=== PATIENT | female | born 1960 | race Caucasian/White ===

== ENCOUNTER 2023-07-30 16:02 | Inpatient (IN) | payer OTHER ==
--- NOTE | 2023-07-30 16:22 | ED ---
Chest Pain HPI - General Chief Complaint: Chest Pain Stated Complaint: Cardiac Time Seen by Provider: 07/30/23 16:15 Source: patient, EMS, RN notes reviewed, old records reviewed Mode of arrival: EMS Limitations: no limitations - History of Present Illness Initial Comments: This is a 63-year-old female to the ER for evaluation. Patient was today for ev aluation of persistent chest pain with exertional shortness of breath as a transfer from outside facility for elevated troponin non-ST elevated KS. Patient is excepted in transfer and currently has no chest pain. Patient states he does have a strong family history of heart disease but she herself has no history of heart disease, currently no shortness of breath MD Complaint: chest pain -: days(s) Onset: during rest, during exertion Pain Location: substernal, left chest Pain Radiation: none Severity: moderate Severity scale (1-10): 4 Quality: aching, heaviness Consistency: constant Improves With: nothing Worsens With: nothing Anginal Symptoms: diaphoresis, dyspnea, sense of impending doom Other Symptoms: palpitations Treatments Prior to Arrival: none - Related Data Home Medications Medication Instructions Recorded Confirmed Vicks Zzzquil Capsules 1 cap PO HS PRN 07/30/23 07/30/23 Previous Rx's Medication Instructions Recorded Aspirin 81 mg PO DAILY 30 Days #30 tab 08/01/23 Atorvastatin [Lipitor] 40 mg PO HS 30 Days #30 tab 08/01/23 Metoprolol Tartrate [Lopressor] 25 mg PO BID 30 Days #30 tab 08/01/23 Nicotine 21Mg/24Hr Patch [Habitrol] 1 patch TRANSDERM DAILY 30 Days 08/01/23 #30 patch Allergies Allergy/AdvReac Type Severity Reaction Status Date / Time No Known Allergies Allergy Verified 07/30/23 18:41 Review of Systems ROS Statement: Those systems with pertinent positive or pertinent negative responses have been documented in the HPI. ROS Other: All systems not noted in ROS Statement are negative. EKG Findings - EKG Comments: EKG Findings:: EKG is sinus 79 [place] 160 QRS 94 QTc 560 - EKG Results: EKG: interpreted by JESÚS Past Medical History Past Medical History: Chest Pain / Angina History of Any Multi-Drug Resistant Organisms: None Reported Additional Past Surgical History / Comment(s): Carpal tunnel surgery Past Psychological History: No Psychological Hx Reported Smoking Status: Current every day smoker Past Alcohol Use History: Occasional Past Drug Use History: None Reported General Exam Limitations: no limitations General appearance: alert, in no apparent distress, anxious Head exam: Present: atraumatic, normocephalic, normal inspection Eye exam: Present: normal appearance, PERRL, EOMI. Absent: scleral icterus, conjunctival injection, periorbital swelling ENT exam: Present: normal exam, mucous membranes moist Neck exam: Present: normal inspection. Absent: tenderness, meningismus, lymphadenopathy Respiratory exam: Present: normal lung sounds bilaterally. Absent: respiratory distress, wheezes, rales, rhonchi, stridor Cardiovascular Exam: Present: regular rate, normal rhythm, normal heart sounds. Absent: systolic murmur, diastolic murmur, rubs, gallop, clicks GI/Abdominal exam: Present: soft, normal bowel sounds. Absent: distended, tenderness, guarding, rebound, rigid Extremities exam: Present: normal inspection, full ROM, normal capillary refill. Absent: tenderness, pedal edema, joint swelling, calf tenderness Back exam: Present: normal inspection Neurological exam: Present: alert, oriented X3, CN II-XII intact Psychiatric exam: Present: normal affect, normal mood Skin exam: Present: warm, dry, intact, normal color. Absent: rash Course Vital Signs 07/30/23 07/30/23 07/30/23 16:09 16:15 20:00 Temperature 97.8 F 97.8 F Pulse Rate 81 87 94 Pulse Rate [ 78 Right Radial] Respiratory 18 16 19 Rate Blood Pressure 96/62 85/70 Blood Pressure [Left Arm] O2 Sat by Pulse 94 L 94 L 97 Oximetry 07/31/23 07/31/23 07/31/23 00:00 02:00 04:00 Temperature 98.0 F Pulse Rate 72 Pulse Rate [ 79 79 Right Radial] Respiratory 19 Rate Blood Pressure 98/65 Blood Pressure 95/57 [Left Arm] O2 Sat by Pulse 93 L Oximetry 07/31/23 07/31/23 07/31/23 05:56 07:56 08:00 Temperature 98 F Pulse Rate Pulse Rate [ 73 Right Radial] Respiratory 18 Rate Blood Pressure Blood Pressure 104/74 [Left Arm] O2 Sat by Pulse 97 95 97 Oximetry 07/31/23 12:00 Temperature 97.5 F L Pulse Rate Pulse Rate [ 66 Right Radial] Respiratory 18 Rate Blood Pressure Blood Pressure 104/74 [Left Arm] O2 Sat by Pulse 95 Oximetry - Reevaluation(s) Reevaluation #1: 07/30/23 18:48 Medical records reviewed Reevaluation #2: 07/30/23 18:48 Patient symptoms are improving and remained improved without chest pain Reevaluation #3: 07/30/23 18:48 Patient informed of results questions answered Reevaluation #4: Was pt. sent in by a medical professional or institution (VENKATESH Sarmiento, FRUIT [employer]ER, urgent care, hospital, or half-way...) When possible be specific @ -no Did you speak to anyone other than the patient for history (EMS, parent, family, police, friend...)? What history was obtained from this source @ -no Did you review nursing and triage notes (agree or disagree)? Why? @ -agree Are old charts reviewed (outside hosp., previous admission, EMS record, old EKG, old radiological studies, urgent care reports/EKG's, half-way records)? R eport findings @ -yes Differential Diagnosis (chest pain, altered mental status, abdominal pain women, abdominal pain men, vaginal bleeding, weakness, fever, dyspnea, syncope, headache, dizziness, GI bleed, back pain, seizure, CVA, palpatations, mental health, musculoskeletal)? @ -prior EKG interpreted by me (3pts min.). @ -yes X-rays interpreted by me (1pt min.). @ -no CT interpreted by me (1pt min.). @ -no U/S interpreted by me (1pt. min.). @ -no What testing was considered but not performed or refused? (CT, X-rays, U/S, labs)? Why? @ -none What meds were considered but not given or refused? Why? @ -none Did you discuss the management of the patient with other professionals (professionals i.e. VENKATESH Sarmiento, FRUIT GRADER, lab, RT, psych nurse, social media senior associate, transfusion nurse, teacher, mechanical engineering officer, case reviewer)? Give summary @ -no Was smoking cessation discussed for >3mins.? @ -no Was critical care preformed (if so, how long)? @ -yes31 Were there social determinants of health that impacted care today? How? (Homelessness, low income, unemployed, alcoholism, drug addiction, transportation, low edu. Level, literacy, decrease access to med. care, [facility], rehab)? @ -none Was there de-escalation of care discussed even if they declined (Discuss DNR or withdrawal of care, Hospice)? DNR status @ -no What co-morbidities impacted this encounter? (DM, HTN, Smoking, COPD, CAD, Cancer, CVA, ARF, Chemo, Hep., AIDS, mental health diagnosis, sleep apnea, morbid obesity)? @ -none Was patient admitted / discharged? Hospital course, mention meds given and route, prescriptions, significant lab abnormalities, going to OR and other pertinent info. @ - 63 female to the ER for evaluation of chest pain. Patient will be admitted for chest pain observation and cardiology evaluation with elevated troponin Admitted Undiagnosed new problem with uncertain prognosis? @ -no Drug Therapy requiring intensive monitoring for toxicity (Heparin, Nitro, Insulin, Cardizem)? @ -no Were any procedures done? @ -no Diagnosis/symptom? @ -Chest pain, non-STEMI Acute, or Chronic, or Acute on Chronic? @ -Acute Uncomplicated (without systemic symptoms) or Complicated (systemic symptoms)? @ -Complicated Side effects of treatment? @ -no Exacerbation, Progression, or Severe Exacerbation? @ -exacerbation Poses a threat to life or bodily function? How? (Chest pain, USA, KS, pneumonia, PE, COPD, DKA, ARF, appy, cholecystitis, CVA, Diverticulitis, Homicidal, Suicidal, threat to staff... and all critical care pts) @ -yes with positive chest pain Reevaluation #5: Differential Chest Pain: Stable Angina, Unstable Angina, STEMI, NSTEMI Aortic Dissection, Pneumothorax, Musculoskeletal, Esophageal Spasm GERD, Cholecystitis, Pancreatitis, Zoster, this is not meant to be an all-inclusive list. - Consultations Consultation #1: Spoke with cardiology on-call who will see patient in the morning Consultation #2: Spoke with sound who agrees to admit this patient Chest Pain MDM - MDM 63 female to the ER for evaluation of chest pain. Patient will be admitted for chest pain observation and cardiology evaluation with elevated troponin Critical Care Time Critical Care Time: Yes Total Critical Care Time: 31 Disposition Clinical Impression: Atypical chest pain, Chest pain, NSTEMI (non-ST elevated myocardial infarction) Disposition: ADMITTED IP TO THIS HOSP Condition: Stable Is patient prescribed a controlled substance at d/c from ED?: No Time of Disposition: 18:20
[2023-07-30 16:35] LABS: Basophils % (A) 0 %; Eosinophils # (A) 0.1 k/uL (0-0.7); Eosinophils % (A) 1 %; HCT 43.8 % (34.0-46.0); HGB 14.5 gm/dL (11.4-16.0); Lymphocytes # (A) 1.6 k/uL (1.0-4.8); Lymphocytes % (A) 20 %; Mean Platelet Volume 8.3; Monocytes # (A) 0.4 k/uL (0-1.0); Monocytes % (A) 5 %; Neutrophils # (A) 5.5 k/uL (1.3-7.7); Neutrophils % (A) 72 %; Platelet Count 214 k/uL (150-450); RBC 4.52 m/uL (3.80-5.40); RDW 12.8 % (11.5-15.5); WBC 7.7 k/uL (3.8-10.6)
[2023-07-30] MEDS: HEPARIN SOD,PORK IN 0.45% NACL 25,000 UNIT in 0.45% NACL 1 250ML.BAG IV SCH (17:04)
[2023-07-30 17:06] LABS: INR 0.9 (<1.2); Partial Thromboplastin Time 55.1 sec (22.0-30.0); Prothrombin Time 10.2 sec (10.0-12.5)
[2023-07-30] MEDS: SODIUM CHLORIDE 0.9% 1,000 ML IV STA (17:07)
[2023-07-30] MEDS: MORPHINE SULFATE 4 MG/ML SYRINGE IV STA (17:10)
[2023-07-30 17:24] LABS: ALT 35 U/L (4-34); AST 75 U/L (14-36); African American GFR (CKD) >90 (>60 ml/min/1.73 sqM); Albumin 3.5 g/dL (3.5-5.0); Alkaline Phosphatase 59 U/L (38-126); Anion Gap 13 mmol/L; Blood Urea Nitrogen 19 mg/dL (7-17); Calcium 8.6 mg/dL (8.4-10.2); Carbon Dioxide 16 mmol/L (22-30); Chloride 107 mmol/L (98-107); Glucose 79 mg/dL (74-99); Lipase 173 U/L (23-300); Magnesium 1.8 mg/dL (1.6-2.3); Non-African American GFR(CKD) >90 (>60 ml/min/1.73 sqM); Potassium 4.7 mmol/L (3.5-5.1); Sodium 136 mmol/L (137-145); Total Bilirubin 0.9 mg/dL (0.2-1.3); Total Protein 6.2 g/dL (6.3-8.2)
[2023-07-30 17:30] LABS: NT-Pro-B-Type Natriuretic Pept 8290 pg/mL
[2023-07-30] MEDS ORDERED: NITROGLYCERIN SL TABS 0.4 MG TAB SUBLINGUAL PRN (18:07)
[2023-07-30] MEDS ORDERED: MORPHINE SULFATE 4 MG/ML SYRINGE IV PRN (18:18)
[2023-07-30] MEDS: ASPIRIN 81 MG PO STA (18:24)
[2023-07-30] MEDS: METOPROLOL TARTRATE 25 MG TAB PO SCH (22:25)
[2023-07-31] MEDS: HEPARIN SODIUM 1,000 UN/ML (10ML VL) IV PRN (01:12)
--- NOTE | 2023-07-31 01:19 | P.HPIM ---
History of Present Illness H&P Date: 07/30/23 Chief Complaint: Exertional dyspnea 63-year-old female with dietary controlled diabetes mellitus Patient coming in for evaluation of exertional dyspnea. She reports that she is in very good health however she had flulike symptoms couple weeks ago that were resolved. But yesterday out of nowhere she started experiencing some chest pain while she was in her car she describes the pain as central in the middle of her chest 7 out of 10 in severity felt like heavy pressure-like pain associated with some dizziness but no shortness of breath no profuse sweating no palpitations no nausea no vomiting she describes the pain lasted for about an hour and then subsided however she felt very drained and tired all day after and then today when she woke up she noticed exertional dyspnea with her usual activity she felt very drained she could not do anything. She denies any leg swelling denies any chest pains today denies any orthopnea or paroxysmal nocturnal dyspnea. She d enies any cardiac history denies any history of left heart cath or stress test. She admits to tobacco smoking denies any illicit drugs or heavy alcohol she denies any recent travel or hospital stay denies any history of blood clots She initially presented to [facility] where she was found to have elevated troponin and diffuse T wave inversion on her EKG blood work showed some hyperkalemia she was transferred to our facility for further care review of systems Pertinent positives as noted in HPI. All other systems were reviewed and are negative on exam Constitutional: No acute distress, conversant, pleasant Eyes: Anicteric sclerae, moist conjunctiva, Pupils equal round reactive to light ENMT: NC/AT Oropharynx clear, no erythema, or exudates Neck: Supple, no masses, or JVD No carotid bruits No thyromegaly Lungs: Clear to auscultation Clear to percussion Normal respiratory effort, no accessory muscle use Cardiovascular: Heart regular in rate and rhythm, No murmurs, gallops, or rubs No peripheral edema Abdominal: Soft Nontender, no guarding, rebound or rigidity Abdomen moving with respiration Normoactive bowel sounds No hepatomegaly, No splenomegaly Extremities: No digital cyanosis No clubbing Pedal pulses intact and symmetrical Radial pulses intact and symmetrical No calf tenderness Psychiatric: Alert and oriented to person, place and time Appropriate affect fair judgement Neuro Muscles Strength 5/5 in all 4 extremities Sensation to light touch grossly present throughout Cranial nerves II-XII grossly intact Past Medical History Past Medical History: Chest Pain / Angina History of Any Multi-Drug Resistant Organisms: None Reported Additional Past Surgical History / Comment(s): Carpal tunnel surgery Past Psychological History: No Psychological Hx Reported Smoking Status: Current every day smoker Past Alcohol Use History: Occasional Past Drug Use History: None Reported Medications and Allergies Home Medications Medication Instructions Recorded Confirmed Type Vicks Zzzquil Capsules 1 cap PO HS PRN 07/30/23 07/30/23 History Allergies Allergy/AdvReac Type Severity Reaction Status Date / Time No Known Allergies Allergy Verified 07/30/23 18:41 Physical Exam Vitals: Vital Signs Temp Pulse Resp BP Pulse Ox 07/31/23 00:00 72 98/65 93 L 07/30/23 20:00 97.8 F 94 19 85/70 97 07/30/23 16:15 87 16 96/62 94 L 07/30/23 16:09 97.8 F 81 18 94 L Intake and Output 07/30/23 07/30/23 07/31/23 14:59 22:59 06:59 Intake Total 50.81 Balance 50.81 Intake: Intake, IV Titration 50.81 Amount Heparin Sod,Pork in 0.45% 50.81 NaCl 25,000 unit In 0.45 % NaCl 1 250ml.bag @ 12 UNITS/KG/HR 6.26 mls/hr IV .Q24H [facility] Rx#: [id number] Other: Weight 52.163 kg Results CBC & Chem 7: 07/30/23 16:18 07/30/23 16:18 Labs: Abnormal Lab Results - Last 24 Hours (Table) 07/30/23 07/30/23 07/30/23 Range/Units 16:18 16:18 16:18 APTT 55.1 H (22.0-30.0) sec Sodium 136 L (137-145) mmol/L Carbon Dioxide 16 L (22-30) mmol/L BUN 19 H (7-17) mg/dL AST 75 H (14-36) U/L ALT 35 H (4-34) U/L Troponin I 1.680 H* (0.000-0.034) ng/mL Total Protein 6.2 L (6.3-8.2) g/dL 07/30/23 07/30/23 Range/Units 19:38 23:00 APTT (22.0-30.0) sec Sodium (137-145) mmol/L Carbon Dioxide (22-30) mmol/L BUN (7-17) mg/dL AST (14-36) U/L ALT (4-34) U/L Troponin I 1.570 H* 1.390 H* (0.000-0.034) ng/mL Total Protein (6.3-8.2) g/dL Assessment and Plan Assessment: 63-year-old female with dietary controlled diabetes mellitus presented with an episode of chest pain followed by exertional dyspnea over the past day or two, I discussed case with ED doctor and accepted the admission for NSTEMI to rule out acute coronary syndrome with anticipated length of stay more than 2 midnights NSTEMI rule out ACS Case discussed with cardiology on-call no plans for immediate intervention recommended heparinizing the patient Heparin GTT per ACS protocol Aspirin 81 mg daily No statin will be started due to elevated liver enzymes Cardiac monitoring Monitor vital signs Fall precautions Nitro as needed for chest pain Elevated troponin trending down 1.6 then 1.5 then 1.39 Blood work showing hemoglobin of 14.5 white count of 7.7 unremarkable Sodium 136 potassium 4.7 BUN 19 creatinine 0.59 Slightly elevated liver enzymes AST 75 ALT 35 EKG showed diffuse T wave inversion Diabetes mellitus dietary controlled Insulin sliding scale Code GI prophylaxis Protonix 40 mg p.o. daily DVT prophylaxis on heparin drip for ACS
[2023-07-31] MEDS ORDERED: DEXTROSE 50% SYRINGE 50 ML IVP PRN ×2 (01:41)
[2023-07-31] MEDS ORDERED: ALPRAZolam 0.5 MG TAB PO PRN (08:20)
[2023-07-31] MEDS ORDERED: ALPRAZolam 0.25 MG TAB PO PRN (08:20)
[2023-07-31] MEDS ORDERED: NITROGLYCERIN SL TABS 0.4 MG TAB SUBLINGUAL PRN (08:20)
[2023-07-31] MEDS ORDERED: ASPIRIN 325 MG TAB PO SCH (09:00)
--- NOTE | 2023-07-31 09:17 | XR ---
EXAMINATION TYPE: XR chest 1V portable DATE OF EXAM: 07/31/2023 8:29 AM CLINICAL INDICATION:Female, 63 years old with history of cp, sob; PHH COMPARISON: None TECHNIQUE: XR chest 1V portable Frontal view of the chest. FINDINGS: Lungs/Pleura: There is no evidence of pleural effusion, focal consolidation, or pneumothorax. Pulmonary vascularity: Unremarkable. Heart/mediastinum: Cardiomediastinal silhouette is unremarkable. Musculoskeletal: No acute osseous pathology. Other findings: None IMPRESSION: No acute cardiopulmonary disease/process.
--- NOTE | 2023-07-31 09:52 | P.CRDCN ---
History of Present Illness History of present illness: HISTORY OF PRESENT ILLNESS: This is a 63-year-old female with a past medical history significant for nicotine dependence. Patient does not follow with a lead teacher. We have been asked to see the patient in consultation for NSTEMI. Patient examined at the bedside. Patient states a couple days ago she began to feel short of breath and had some lightheadedness. She states that she had some chest pain at that time that lasted for approximately an hour. She states that it felt like somebody was pressing on the middle of her chest. She does report feeling cold at that time. She denied having any fever. She states the following morning she went to take a shower and was having a hard time getting through her shower due to shortness of breath. She states at that time she decided to come to the hospital for further evaluation. The patient denies any chest pain this morning but she continues to have shortness of breath with exertion. She denies any history of hypertension hyperlipidemia, or diabetes. She is a current cigarette smoker and reports occasional alcohol use. She does report having a chronic cough from smoking. She states that her dad side of the family has a history of cardiac problems but is unsure of exactly what. DIAGNOSTICS: - EKG reveals sinus mechanism with diffuse T wave inversions and prolonged QT. - Chest xray negative for acute findings. - Laboratory data: WBC 7.7. Hemoglobin 14.5. Platelet count 214. Sodium 136. potassium 4.7. BUN 19. Creatinine 0.59 magnesium 1.8. AST 75. ALT 35. Troponin 1.680. 1.570. 1.390. proBNP 8290. - Current home cardiac medications include none. REVIEW OF SYSTEMS: At the time of my exam: CONSTITUTIONAL: Denies fever or chills. HEENT: Denies blurred vision, vision changes, or eye pain. Denies hemoptysis CARDIOVASCULAR: Denies chest pain. Denies orthopnea. Denies PND. Denies palpitations RESPIRATORY: Denies shortness of breath. GASTROINTESTINAL: Denies abdominal pain. Denies nausea or vomiting. HEMATOLOGIC: Denies bleeding disorders. GENITOURINARY: Denies any blood in urine. SKIN: Denies pruitis. Denies rash. PHYSICAL EXAM: VITAL SIGNS: Reviewed. GENERAL: Well-developed in no acute distress. HEENT: Head is normocephalic. Pupils are equal, round. Sclerae anicteric. Mucous membranes of the mouth are moist. Neck supple. No JVD or thyromegaly LUNGS: Respirations even and unlabored. Lungs essentially clear to auscultation bilaterally. HEART: Regular rate and rhythm. S1 and S2 heard. ABDOMEN: Soft. Nondistended. Nontender. EXTREMITIES: Normal range of motion. No clubbing or cyanosis. Peripheral pulses intact. No lower extremity edema NEUROLOGIC: Awake and alert. Oriented x 3. ASSESSMENT: Non-STEMI with diffuse T wave inversions, CAD versus Takotsubo cardiomyopathy Exertional shortness of breath Minimally elevated LFTs Nicotine dependence PLAN: Obtain 2D echo to assess cardiac structure and function Continue IV heparin Add aspirin 81 mg daily and atorvastatin 40 mg at night Patient has been started on metoprolol tartrate 25 mg twice a day Smoking cessation recommended Patient to undergo cardiac catheterization today with Dr. Cleveland Further recommendations pending patient course Nurse practitioner note has been reviewed by physician. Signing provider agrees with the documented findings, assessment, and plan of care documented by SERVICE EMPLOYEE as a scribe. Past Medical History Past Medical History: Chest Pain / Angina History of Any Multi-Drug Resistant Organisms: None Reported Additional Past Surgical History / Comment(s): Carpal tunnel surgery Past Psychological History: No Psychological Hx Reported Smoking Status: Current every day smoker Past Alcohol Use History: Occasional Past Drug Use History: None Reported Medications and Allergies Home Medications Medication Instructions Recorded Confirmed Type Vicks Zzzquil Capsules 1 cap PO HS PRN 07/30/23 07/30/23 History Allergies Allergy/AdvReac Type Severity Reaction Status Date / Time No Known Allergies Allergy Verified 07/30/23 18:41 Physical Exam Vitals: Vital Signs Temp Pulse Pulse Resp BP BP Pulse Ox 07/31/23 07:56 95 07/31/23 05:56 97 07/31/23 04:00 98.0 F 79 19 95/57 07/31/23 02:00 79 07/31/23 00:00 72 98/65 93 L 07/30/23 20:00 97.8 F 94 78 19 85/70 97 07/30/23 16:15 87 16 96/62 94 L 07/30/23 16:09 97.8 F 81 18 94 L Intake and Output 07/30/23 07/31/23 07/31/23 22:59 06:59 14:59 Intake Total 50.81 Output Total 1 Balance 49.81 Intake: Intake, IV Titration 50.81 Amount Heparin Sod,Pork in 0.45% 50.81 NaCl 25,000 unit In 0.45 % NaCl 1 250ml.bag @ 12 UNITS/KG/HR 6.26 mls/hr IV .Q24H [facility] Rx#: [id number] Output: Urine 1 Other: Weight 52.163 kg 52.163 kg Results 07/30/23 16:18 07/30/23 16:18 Cardiac Enzymes 07/30/23 07/30/23 07/30/23 Range/Units 16:18 16:18 19:38 AST 75 H (14-36) U/L Troponin I 1.680 H* 1.570 H* (0.000-0.034) ng/mL 07/30/23 Range/Units 23:00 AST (14-36) U/L Troponin I 1.390 H* (0.000-0.034) ng/mL Coagulation 07/30/23 07/30/23 Range/Units 16:18 23:00 PT 10.2 (10.0-12.5) sec APTT 55.1 H 28.8 (22.0-30.0) sec CBC 07/30/23 Range/Units 16:18 WBC 7.7 (3.8-10.6) k/uL RBC 4.52 (3.80-5.40) m/uL Hgb 14.5 (11.4-16.0) gm/dL Hct 43.8 (34.0-46.0) % Plt Count 214 (150-450) k/uL Comprehensive Metabolic Panel 07/30/23 Range/Units 16:18 Sodium 136 L (137-145) mmol/L Potassium 4.7 (3.5-5.1) mmol/L Chloride 107 (98-107) mmol/L Carbon Dioxide 16 L (22-30) mmol/L BUN 19 H (7-17) mg/dL Creatinine 0.59 (0.52-1.04) mg/dL Glucose 79 (74-99) mg/dL Calcium 8.6 (8.4-10.2) mg/dL AST 75 H (14-36) U/L ALT 35 H (4-34) U/L Alkaline Phosphatase 59 (38-126) U/L Total Protein 6.2 L (6.3-8.2) g/dL Albumin 3.5 (3.5-5.0) g/dL Current Medications Generic Name Dose Route Start Last Admin Trade Name Joeq PRN Reason Stop Dose Admin Aspirin 325 mg 07/31/23 09:00 Aspirin 325 Mg Tab PO DAILY EV Dextrose/Water 25 ml 07/31/23 01:41 Dextrose 50% Syringe 50 Ml IVP PER PROTOCOL PRN Hypoglycemia Protocol Dextrose/Water 50 ml 07/31/23 01:41 Dextrose 50% Syringe 50 Ml IVP PER PROTOCOL PRN Hypoglycemia Protocol Heparin Sodium (Porcine) 0 unit 07/30/23 16:15 07/31/23 01:12 Heparin Sodium 1,000 Un/Ml (10ml Vl) IV 2,500 unit PER PROTOCOL PRN Administration Low PTT Protocol Sodium Chloride 1,000 mls @ 20 mls/hr 07/30/23 16:15 07/30/23 17:07 Saline 0.9% IV 07/31/23 16:14 20 mls/hr .Q24H [facility] Administration Heparin Sodium/Sodium Chloride 250 mls @ 6.26 mls/hr 07/30/23 16:15 07/31/23 01:11 25,000 unit/ Sodium Chloride IV 15 units/kg/hr .Q24H [facility] 7.824 mls/hr Titration Protocol 12 UNITS/KG/HR Insulin Aspart 0 unit 07/31/23 07:30 Insulin Aspart (Novolog) 100 Unit/Ml Vial SQ ACHS [facility] Protocol Metoprolol Tartrate 25 mg 07/30/23 21:00 07/30/23 22:25 Metoprolol Tartrate 25 Mg Tab PO Not Given BID [facility] Morphine Sulfate 4 mg 07/30/23 18:18 Morphine Sulfate 4 Mg/Ml Syringe IV Q6HR PRN Chest Pain Nitroglycerin 0.4 mg 07/30/23 18:07 Nitroglycerin Sl Tabs 0.4 Mg Tab SUBLINGUAL Q5M PRN Chest Pain Intake and Output 07/30/23 07/31/23 07/31/23 22:59 06:59 14:59 Intake Total 50.81 Output Total 1 Balance 49.81 Intake: Intake, IV Titration 50.81 Amount Heparin Sod,Pork in 0.45% 50.81 NaCl 25,000 unit In 0.45 % NaCl 1 250ml.bag @ 12 UNITS/KG/HR 6.26 mls/hr IV .Q24H [facility] Rx#: [id number] Output: Urine 1 Other: Weight 52.163 kg 52.163 kg 07/30/23 16:18 07/30/23 16:18
[2023-07-31] MEDS: ASPIRIN 325 MG TAB PO STA (10:04)
[2023-07-31] MEDS: ATORVASTATIN 80 MG TAB PO STA (10:05)
[2023-07-31] MEDS: SODIUM CHLORIDE 0.9% 1,000 ML in EMPTY BAG 1 BAG IV SCH (10:05)
[2023-07-31] MEDS: ASPIRIN 81 MG PO SCH (10:06)
[2023-07-31] MEDS: NICOTINE 21MG/24HR PATCH TRANSDERM SCH (10:08)
--- NOTE | 2023-07-31 12:55 | P.PN ---
Subjective Progress Note Date: 07/31/23 Hospital course: Patient is a very pleasant 63-year-old female with a past medical history of nicotine dependence and dietary controlled diabetes melitis. She presented to the emergency department with a chief complaint of exertional shortness of breath and chest pain. Upon arrival to the emergency department, patient underwent full evaluation. Vital signs upon arrival show blood pressure 96/42, heart rate 87, respiratory rate 18, temp 97.8 F, and SpO2 of 94% on room air. EKG completed showing sinus mechanism at 79 bpm with inferior lateral T wave inversion in leads I, II, III, aVF and V3 through V6. Labs were completed and reviewed. CBC unremarkable. Coagulation profile showing an elevated PTT of 51.1. BMP showing hypocarbia with bicarb of 16 and mildly elevated BUN of 19 otherwise normal findings. Magnesium 1.8. Liver profile showing elevated AST of 75 and ALT of 35. Troponin 1.680 and proBNP 8290. Patient was started on heparin infusion for treatment of NSTEMI and admitted under our services with consultation to cardiology. Physical exam: Vital signs reviewed and stable. General: Nontoxic, no distress and appears stated age. Derm: Skin warm and dry, normal coloration for ethnicity. Head: Atraumatic, normocephalic and symmetric. Eyes: EOMs intact, no lid lag, and anicteric sclera Mouth: no lip lesions, mucus membranes moist Cardiovascular: regular rate and rhythm with normal S1S2, systolic murmur, positive posterior tibial pulses bilaterally, and cap refill < 2 seconds. Lungs: Respirations even, regular, and unlabored on room air. Lungs CTA bilatera lly, no rhonchi, no rales, no wheezing, and no accessory muscle usage. Abdominal: soft, nontender to palpation, no guarding, no appreciable organomegaly Ext: ROM intact. No gross muscle atrophy, no edema, no contractures Neuro: Speech clear, face symmetrical and CN II-XII grossly intact with no noted focal neuro deficits Psych: Alert and oriented to person, place, time, and situation. Appropriate and pleasant affect. Assessment and Plan of Care: NSTEMI Chest pain and exertional dyspnea secondary to above -Cardiology following, patient scheduled to undergo cardiac cath later today with Dr. Cleveland -Continue heparin infusion, currently PTT subtherapeutic at 35.4, infusion rate increased to 17 units/kg/h -Continuous telemetry monitoring -N.p.o. pending completion of cardiac cath then may advance to cardiac diet -Continue aspirin 81 mg daily, atorvastatin 80 mg nightly, and metoprolol 25 mg twice daily -Lipid profile and hemoglobin A1c with a.m. labs. -Echocardiogram to be completed. Nicotine dependence -Recommend smoking cessation. Order placed for nicotine patch 21 mg daily. Data and imaging reviewed: Vital signs reviewed and stable. Blood pressure 104/74, heart rate 73, respiratory rate 18, temp 98.0 F, and SpO2 of 97% on room air. Troponins trended throughout the night resulting at 1.680, 1.570, and 1.390. PTT subtherapeutic at 35.4, heparin infusion rate increased to 17 units/kg/h. Chest x-ray completed and radiology report reviewed stating negative for acute cardiopulmonary process. CODE STATUS: Full code DVT prophylaxis: Heparin Anticipated discharge date: Clinical course to determine Anticipated discharge place: Clinical course to determine Patient was seen independently by Nurse Pracitioner. This document was prepared using [employer] dictation software. Please allow for errors in manager zone, while rare they do occur. Objective - Vital Signs Vital signs: Vital Signs Temp 98.0 F 07/31/23 04:00 Pulse 79 07/31/23 04:00 Resp 19 07/31/23 04:00 BP 95/57 07/31/23 04:00 Pulse Ox 95 07/31/23 07:56 FiO2 Intake & Output 07/30/23 07/31/23 07/31/23 18:59 06:59 18:59 Intake Total 50.81 Output Total 1 Balance 49.81 Weight 52.163 kg 52.163 kg Intake: Intake, IV Titration 50.81 Amount Heparin Sod,Pork in 0.45% 50.81 NaCl 25,000 unit In 0.45 % NaCl 1 250ml.bag @ 12 UNITS/KG/HR 6.26 mls/hr IV .Q24H [facility] Rx#: [id number] Output: Urine 1 - Labs CBC & Chem 7: 07/30/23 16:18 07/30/23 16:18 Labs: Abnormal Lab Results - Last 24 Hours (Table) 07/30/23 07/30/23 07/30/23 Range/Units 16:18 16:18 16:18 APTT 55.1 H (22.0-30.0) sec Sodium 136 L (137-145) mmol/L Carbon Dioxide 16 L (22-30) mmol/L BUN 19 H (7-17) mg/dL AST 75 H (14-36) U/L ALT 35 H (4-34) U/L Troponin I 1.680 H* (0.000-0.034) ng/mL Total Protein 6.2 L (6.3-8.2) g/dL 07/30/23 07/30/23 Range/Units 19:38 23:00 APTT (22.0-30.0) sec Sodium (137-145) mmol/L Carbon Dioxide (22-30) mmol/L BUN (7-17) mg/dL AST (14-36) U/L ALT (4-34) U/L Troponin I 1.570 H* 1.390 H* (0.000-0.034) ng/mL Total Protein (6.3-8.2) g/dL
[2023-07-31 13:08] LABS: Chol/HDL Ratio 1.89 Ratio; LDL Cholesterol,Calculated 96.8 mg/dL (0.0-131.0); VLDL Calculation 13.22 mg/dL (5.00-40.00)
[2023-07-31] MEDS: INSULIN ASPART (NovoLOG) 100 UNIT/ML VIAL SQ SCH (14:20)
[2023-07-31] MEDS ORDERED: HEPARIN SODIUM 1,000 UN/ML (10ML VL) ONE (15:15)
[2023-07-31] MEDS ORDERED: fentaNYL (PF) 50 MCG/ML 2 ML AMP ONE (15:15)
[2023-07-31] MEDS: LIDOCAINE 2% INJ 20 MG/ML SQ ONE (15:24)
[2023-07-31] MEDS: fentaNYL (PF) 50 MCG/1 ML VIAL IVP ONE (15:24)
[2023-07-31] MEDS: MIDAZOLAM 2 MG/2 ML VIAL IVP ONE ×2 (15:24→15:30)
[2023-07-31] MEDS: VERAPAMIL 2.5 MG/ML 4 ML VIAL IVP ONE (15:24)
[2023-07-31] MEDS: HEPARIN SODIUM 1,000 UN/ML (10ML VL) IVP ONE (15:34)
[2023-07-31] MEDS: IOPAMIDOL-370 100ML BTL INTRATHECA ONE (15:40)
[2023-07-31] MEDS: SODIUM CHLORIDE 0.9% 1,000 ML IV ONE ×2 (15:41)
--- NOTE | 2023-07-31 16:36 | P.CARDCATH ---
Description of Procedure: PROCEDURES PERFORMED: Left heart catheterization, bilateral coronary angiography, ultrasound guided arterial access, left ventriculogram INDICATION: Non-STEMI CONSENT:I have discussed the risks, benefits and alternative therapies for the above-mentioned procedure and for both sedation/analgesia as well as necessary blood product administration, if indicated, as they pertain to this patient. The patient has indicated understanding and acceptance of the risks and procedures discussed. PROCEDURE: After the risks, benefits and alternatives of the above mentioned procedure explained in detail with the patient, informed consent was obtained. Patient was taken to the catheterization lab and prepped and draped in usual fashion. Ultrasound guidance was used to assess for arterial access. 1% lidocaine was used to anesthetize the right radial artery. A 6-Indonesian sheath was placed in the right radial artery using modified Seldinger technique and ultrasound guidance. Left coronary angiography was performed with a 5-Indonesian JL 3.5 catheter and right coronary angiography was performed with a 5-Indonesian FR5 catheter in various views. A 5-Indonesian FR5 catheter was inserted into the left ventricle and pressure measurements were obtained. A left ventriculogram was performed in the [facility] projection with a pigtail catheter in power injection. The right radial sheath was removed and a TR band was placed with hemostasis achieved. The patient tolerated the procedure well. Patient was transported back to the post catheterization holding area in stable condition. Conscious Sedation: Patient was monitored under the direct supervision of myself for conscious sedation using Versed and fentanyl for a total duration of 15 minutes HEMODYNAMICS: Aorta: 98/72 LV: 94/5, LVEDP 10 SELECTIVE CORONARY ARTERIOGRAPHY: LEFT MAIN: The left main is a large caliber vessel which bifurcates into the LAD and circumflex. There is no significant stenosis. LEFT ANTERIOR DESCENDING CORONARY ARTERY: LAD is a large caliber vessel which stops short of the apex. There is no significant stenosis. The apex is supplied by the PDA. LEFT CIRCUMFLEX CORONARY ARTERY: Left circumflex is a moderate caliber vessel without significant stenosis. RIGHT CORONARY ARTERY: The right coronary artery is a large caliber vessel which gives off a PDA and PLV branch and is the dominant vessel. There is no significant stenosis. LEFT VENTRICULOGRAM: Left ventricular ejection fraction 45% with apical hypokinesis consistent with Takotsubo's Cardiomyopathy FINAL IMPRESSION: 1. Normal coronary arteries as described above. 2. Normal left sided filling pressures 3. Left ventricular ejection fraction 45% with apical hypokinesis consistent with Takotsubo's Cardiomyopathy PLAN: 1. Aggressive risk factor modification per most recent ACC/AHA guidelines. 2. Follow-up in the office in 1-2 weeks.
[2023-07-31] MEDS: ATORVASTATIN 40 MG TAB PO SCH (19:59)
[2023-07-31] MEDS ORDERED: ATORVASTATIN 80 MG TAB PO SCH (21:00)
[2023-08-01] MEDS ORDERED: HEPARIN SODIUM,PORCINE (1 ML) 2,500 UNIT in SODIUM CHLORIDE 0.9% 250 ML IRRIGATION PRN (07:00)
[2023-08-01] MEDS ORDERED: HEPARIN SODIUM,PORCINE 10,000 UNIT in SODIUM CHLORIDE 0.9% 1,000 ML IRRIGATION PRN (07:00)
--- NOTE | 2023-08-01 07:38 | CA ---
Transthoracic Echo Report Name: Nora Perez Age: 63 Gender: F : 1960 Exam Date: 07/31/2023 13:20 Exam Location: [facility] Ht (in): 65 Wt (lb): 115 Ordering Physician: Vi Russo Attending/Referring Phys: [id number], [employer] Tank Mechanic Shahrzad Hallman RDCS Procedure CPT: Indications: LV function,CP Cardiac Hx: Technical Quality: Good Contrast 1: Total Dose (mL): Contrast 2: Total Dose (mL): MEASUREMENTS (Male / Female) Normal Values 2D ECHO LV Diastolic Diameter PLAX 4.2 cm 4.2 - 5.9 / 3.9 - 5.3 cm LV Systolic Diameter PLAX 2.8 cm IVS Diastolic Thickness 1.3 cm 0.6 - 1.0 / 0.6 - 0.9 cm LVPW Diastolic Thickness 1.2 cm 0.6 - 1.0 / 0.6 - 0.9 cm LV Relative Wall Thickness 0.6 RV Internal Dim ED PLAX 2.9 cm LA Systolic Diameter LX 3.4 cm 3.0 - 4.0 / 2.7 - 3.8 cm LV Diastolic Volume MOD BP 77.7 cm??? 67 - 155 / 56 - 104 cm??? LV Systolic Volume MOD BP 41.0 cm??? 22 - 58 / 19 - 49 cm??? LV Ejection Fraction MOD BP 47.3 % >= 55 % LV Cardiac Index MOD BP 1477.8 cm???/min???m??? LV Diastolic Volume MOD 4C 76.3 cm??? LV Systolic Volume MOD 4C 49.5 cm??? LV Ejection Fraction MOD 4C 35.2 % LV Cardiac Index MOD 4C 1079.2 cm???/min???m??? LV Diastolic Length 4C 6.7 cm LV Systolic Length 4C 6.9 cm LV Diastolic Volume MOD 2C 74.5 cm??? LV Systolic Volume MOD 2C 37.6 cm??? LV Ejection Fraction MOD 2C 49.6 % LV Cardiac Index MOD 2C 1488.2 cm???/min???m??? LV Diastolic Length 2C 7.2 cm LV Systolic Length 2C 6.9 cm M-MODE Aortic Root Diameter MM 3.3 cm DOPPLER AV Peak Velocity 134.4 cm/s AV Peak Gradient 7.2 mmHg Mitral E Point Velocity 71.8 cm/s Mitral A Point Velocity 87.5 cm/s Mitral E to A Ratio 0.8 MV Deceleration Time 226.4 ms MV E' Velocity 5.3 cm/s Mitral E to MV E' Ratio 13.7 TR Peak Velocity 240.4 cm/s TR Peak Gradient 23.1 mmHg Right Ventricular Systolic Press 28.1 mmHg FINDINGS Left Ventricle Left ventricular ejection fraction is estimated at 35-40 %. Left ventricular cavity size normal. Moderately increased basal septal wall thickness. Mildly decreased left ventricular ejection fraction. Anterior ,septal , inferior [place] hypokinesis Right Ventricle Normal right ventricular size. Right ventricular systolic pressure within normal limits. Right Atrium Normal right atrial size. Left Atrium Normal left atrial size. Mitral Valve Structurally normal mitral valve. Mild mitral regurgitation. Aortic Valve Trileaflet aortic valve. No aortic valve stenosis or regurgitation. Tricuspid Valve Structurally normal tricuspid valve. Mild tricuspid regurgitation. Pulmonic Valve Structurally normal pulmonic valve. No pulmonic regurgitation. Pericardium No pericardial effusion. Aorta Normal size aortic root and proximal ascending aorta. CONCLUSIONS Left ventricular ejection fraction is estimated at 35-40 %. Moderate basal septal hypertrophy Apical and periapical akinesis Increased turbulance in LVOT no obstruction or LORI Mild Mitral regurgitation Normal RV size and function Previewed by: Dr Feroz Diaz (Electronically Signed) Final Date: 01 August 2023 07:37
[2023-08-01 08:13] LABS: HCT 40.6 % (34.0-46.0); HGB 13.1 gm/dL (11.4-16.0); MCH 31.4 pg (25.0-35.0); MCHC 32.2 g/dL (31.0-37.0); MCV 97.5 fL (80.0-100.0); Mean Platelet Volume 8.6; Platelet Count 200 k/uL (150-450); RBC 4.16 m/uL (3.80-5.40); RDW 12.9 % (11.5-15.5); WBC 7.5 k/uL (3.8-10.6)
[2023-08-01 08:29] LABS: African American GFR (CKD) >90 (>60 ml/min/1.73 sqM); Anion Gap 3 mmol/L; Blood Urea Nitrogen 14 mg/dL (7-17); Carbon Dioxide 25 mmol/L (22-30); Chloride 108 mmol/L (98-107); Glucose 106 mg/dL (74-99); Magnesium 1.6 mg/dL (1.6-2.3); Non-African American GFR(CKD) >90 (>60 ml/min/1.73 sqM); Potassium 4.4 mmol/L (3.5-5.1); Sodium 136 mmol/L (137-145)
[2023-08-01 09:08] VITALS: BP 112/80; PULSE 74; RESP 17; TEMP 98.2
[2023-08-01] MEDS ORDERED: MAGNESIUM OXIDE 400 MG TAB PO STA (10:59)
--- NOTE | 2023-08-01 11:04 | P.DS ---
Providers Date of admission: 07/30/23 18:19 Expected date of discharge: 08/01/23 Attending physician: Stephanie Sher DO Consults: 07/30/23 18:07 Consult Physician Urgent Consulting Provider: Angel Wynn Consult Reason/Comments: nstemi Do you want consulting provider notified?: Yes Primary care physician: Stated None Hospital Course: Discharge Diagnosis: NSTEMI Takotsubo's cardiomyopathy Chest pain and exertional dyspnea secondary to above Nicotine dependence. Recommend smoking cessation. Order placed for nicotine patch 21 mg daily. Pulmonary nodules. Transfer documentation from [facility], CTA was completed and per transfer documentation this revealed evidence of pulmonary nodules.Discussed findings with patient and her daughter at bedside that they will need to follow-up with certified health education specialist for repeat imaging and further management/testing of this finding. Hospital Course: Patient is a very pleasant 63-year-old female with a past medical history of nicotine dependence and dietary controlled diabetes melitis. She presented to the emergency department with a chief complaint of exertional shortness of breath and chest pain. Upon arrival to the emergency department, patient underwent full evaluation at [facility] and was found to have an elevated troponin and EKG abnormalities and was transferred to our facility for further evaluation.. CTA was completed at [facility] and per transfer documentation this was negative for PE but revealed evidence of pulmonary nodules. Upon arrival to our facility, patient underwent further evaluation. Vital signs upon arrival show blood pressure 96/42, heart rate 87, respiratory rate 18, temp 97.8 F, and SpO2 of 94% on room air. EKG completed showing sinus mechanism at 79 bpm with inferior lateral T wave inversion in leads I, II, III, aVF and V3 through V6. Labs were completed and reviewed. CBC unremarkable. Coagulation profile showing an elevated PTT of 51.1. BMP showing hypocarbia with bicarb of 16 and mildly elevated BUN of 19 otherwise normal findings. Magnesium 1.8. Liver profile showing elevated AST of 75 and ALT of 35. Troponin 1.680 and proBNP 8290. Patient was started on heparin infusion for treatment of NSTEMI and admitted under our services with consultation to cardiology.Troponins trended throughout the night resulting at 1.680, 1.570, and 1.390. PTT subtherapeutic at 35.4, heparin infusion rate increased to 17 units/kg/h. Chest x-ray completed and radiology report reviewed stating negative for acute cardiopulmonary process. Patient was evaluated by appraisal technician and taken for cardiac cath which reports normal coronary arteries with a reduced EF of 45% with apical hypokinesis consistent with Takotsubo's cardiomyopathy. Patient cleared from cardiac perspective recommending outpatient follow-up in their office in 1 to 2 weeks. Physical exam: Vital signs reviewed and stable. General: Nontoxic, no distress and appears stated age. Derm: Skin warm and dry, normal coloration for ethnicity. Head: Atraumatic, normocephalic and symmetric. Eyes: EOMs intact, no lid lag, and anicteric sclera Mouth: no lip lesions, mucus membranes moist Cardiovascular: regular rate and rhythm with normal S1S2, systolic murmur, positive posterior tibial pulses bilaterally, and cap refill < 2 seconds. Lungs: Respirations even, regular, and unlabored on room air. Lungs CTA bilaterally, no rhonchi, no rales, no wheezing, and no accessory muscle usage. Abdominal: soft, nontender to palpation, no guarding, no appreciable organomegaly Ext: ROM intact. No gross muscle atrophy, no edema, no contractures Neuro: Speech clear, face symmetrical and CN II-XII grossly intact with no noted focal neuro deficits Psych: Alert and oriented to person, place, time, and situation. Appropriate and pleasant affect. A total of 34 minutes of time were spent preparing this complex discharge summary. Pt was discharged on 08/01/2023 at 10:57 AM. Patient was seen independently by Nurse Practitioner. This document was prepared using [employer] dictation software. Please allow for errors in laser engraver while rare they do occur. Adam Sandoval NP rendered care for this patient independently, reviewed the findings and plan as documented in the note above. I did not physically speak with or examine the patient on this date. Patient Condition at Discharge: Stable Plan - Discharge Summary New Discharge Prescriptions: New Nicotine 21Mg/24Hr Patch [Habitrol] 1 patch TRANSDERM DAILY 30 Days #30 patch Aspirin 81 mg PO DAILY 30 Days #30 tab Atorvastatin [Lipitor] 40 mg PO HS 30 Days #30 tab Metoprolol Tartrate [Lopressor] 25 mg PO BID 30 Days #30 tab Continue Vicks Zzzquil Capsules 1 cap PO HS PRN PRN Reason: Insomnia Discharge Medication List Vicks Zzzquil Capsules 1 cap PO HS PRN 07/30/23 [History] Aspirin 81 mg PO DAILY 30 Days #30 tab 08/01/23 [Rx] Atorvastatin [Lipitor] 40 mg PO HS 30 Days #30 tab 08/01/23 [Rx] Metoprolol Tartrate [Lopressor] 25 mg PO BID 30 Days #30 tab 08/01/23 [Rx] Nicotine 21Mg/24Hr Patch [Habitrol] 1 patch TRANSDERM DAILY 30 Days #30 patch 08/01/23 [Rx] Follow up Appointment(s)/Referral(s): Yfn Cleveland DO [STAFF PHYSICIAN] - 1 Week (office will call you with appt time) Héctor Yañez MD [REFERRING] - 1-2 Days Luis Royal DO [Doctor of Osteopathic Medicine] - 1 Week (August 22 9:00) Patient Instructions/Handouts: *Surgery [facility] - After Heart Catheterization - Tea Blender Instructions, How to Stop Smoking (DC), After Radial Heart Catheterization (GEN) Activity/Diet/Wound Care/Special Instructions: Activity: As tolerated. Take breaks as needed. Diet: Heart healthy and carb consistent diet. Avoid salts, or foods with hidden salts such as canned or boxed foods and frozen dinners. Extra salt makes your heart work harder and traps the fluid in your body for longer. Special Instructions: Take all of your medications as directed and remember to keep all of your doctor's appointments and follow-up as needed. Thank you for allowing us to participate in your care, it was truly a pleasure having you for our patient!!! [facility] CTA report states evidence of pulmonary nodules. As discussed with you and your daughter at bedside, it is of upmost importance to follow-up outpatient with certified health education specialist for repeat imaging and further evaluation and of this finding.. Discharge/Stand Alone Forms: Who Do I Call?, PH Area PCPs Discharge Disposition: HOME SELF-CARE
--- NOTE | 2023-08-01 13:24 | P.PN ---
Subjective HISTORY OF PRESENT ILLNESS: This is a 63-year-old female with a past medical history significant for nicotine dependence. Patient does not follow with a service vehicle operator. We have been asked to see the patient in consultation for NSTEMI. Patient examined at the bedside. Patient states a couple days ago she began to feel short of breath and had some lightheadedness. She states that she had some chest pain at that time that lasted for approximately an hour. She states that it felt like somebody was pressing on the middle of her chest. She does report feeling cold at that time. She denied having any fever. She states the following morning she went to take a shower and was having a hard time getting through her shower due to shortness of breath. She states at that time she decided to come to the hospital for further evaluation. The patient denies any chest pain this morning but she continues to have shortness of breath with exertion. She denies any history of hypertension hyperlipidemia, or diabetes. She is a current cigarette smoker and reports occasional alcohol use. She does report having a chronic cough from smoking. She states that her dad side of the family has a history of cardiac problems but is unsure of exactly what. DIAGNOSTICS: - EKG reveals sinus mechanism with diffuse T wave inversions and prolonged QT. - Chest xray negative for acute findings. - Laboratory data: WBC 7.7. Hemoglobin 14.5. Platelet count 214. Sodium 136. potassium 4.7. BUN 19. Creatinine 0.59 magnesium 1.8. AST 75. ALT 35. Trop onin 1.680. 1.570. 1.390. proBNP 8290. - Current home cardiac medications include none. 08/01/2023 Patient is status postcardiac catheterization with Dr. Velazquez yesterday revealing normal coronary arteries and normal left-sided filling pressures. Patient examined this morning at the bedside. Patient denies chest pain or pressure. She denies shortness of breath. Vital signs are stable. PHYSICAL EXAM: VITAL SIGNS: Reviewed. GENERAL: Well-developed in no acute distress. HEENT: Head is normocephalic. Pupils are equal, round. Sclerae anicteric. Mucous membranes of the mouth are moist. Neck supple. No JVD or thyromegaly LUNGS: Respirations even and unlabored. Lungs essentially clear to auscultation bilaterally. HEART: Regular rate and rhythm. S1 and S2 heard. ABDOMEN: Soft. Nondistended. Nontender. EXTREMITIES: Normal range of motion. No clubbing or cyanosis. Peripheral pulses intact. No lower extremity edema NEUROLOGIC: Awake and alert. Oriented x 3. ASSESSMENT: Non-STEMI with diffuse T wave inversions, status post cardiac catheterization revealing normal coronary arteries, consistent with Takotsubo cardiomyopathy Takotsubo cardiomyopathy Exertional shortness of breath Minimally elevated LFTs Nicotine dependence PLAN: Continue current cardiac medications including aspirin, lipitor, and metoprolol. No HONG/ARB at this time per Dr. Cleveland. Smoking cessation recommended Patient to follow-up postdischarge with Dr. Cleveland Nurse practitioner note has been reviewed by physician. Signing provider agrees with the documented findings, assessment, and plan of care documented by FISH WORM GROWER as a scribe. Objective - Vital Signs Vital signs: Vital Signs Temp 98.2 F 08/01/23 08:10 Pulse 74 08/01/23 08:10 Resp 17 08/01/23 08:10 BP 112/80 08/01/23 08:10 Pulse Ox 95 08/01/23 08:10 FiO2 Intake & Output 07/31/23 08/01/23 08/01/23 18:59 06:59 18:59 Intake Total 959.935 480 Balance 959.935 480 Intake: IV 400 Intake, IV Titration 79.935 Amount Heparin Sod,Pork in 0.45% 79.935 NaCl 25,000 unit In 0.45 % NaCl 1 250ml.bag @ 12 UNITS/KG/HR 6.26 mls/hr IV .Q24H [facility] Rx#: [id number] Oral 480 480 Other: Voiding Method Toilet Toilet Toilet # Voids 0 2 2 - Labs CBC & Chem 7: 08/01/23 07:50 08/01/23 07:50 Labs: Abnormal Lab Results - Last 24 Hours (Table) 07/31/23 08/01/23 Range/Units 17:15 07:50 APTT 41.3 H (22.0-30.0) sec Sodium 136 L (137-145) mmol/L Chloride 108 H (98-107) mmol/L Glucose 106 H (74-99) mg/dL
== END 2023-08-01 11:47 | disposition home or self-care (01) | DRG 281 ==
LOC: EC 16:02 → 3SCARD 18:19
PROVIDERS: ADMIT Internal Medicine; ATTEND Internal Medicine
PROC: 4A023N7 Measurement of Cardiac Sampling and Pressure, Left Heart, Percutaneous Approach (ICD-10-PCS; principal; 2023-07-31 13:10)
PROC: B2111ZZ Fluoroscopy of Multiple Coronary Arteries using Low Osmolar Contrast (ICD-10-PCS; principal; 2023-07-31 13:10)
PROC: B2151ZZ Fluoroscopy of Left Heart using Low Osmolar Contrast (ICD-10-PCS; principal; 2023-07-31 13:10)
DX: I21.4 Non-ST elevation (NSTEMI) myocardial infarction (principal); I51.81 Takotsubo syndrome; E11.9 Type 2 diabetes mellitus without complications; J41.0 Simple chronic bronchitis; Z28.310 Unvaccinated for COVID-19; R79.1 Abnormal coagulation profile; R74.01 Elevation of levels of liver transaminase levels; R91.8 Other nonspecific abnormal finding of lung field; F17.210 Nicotine dependence, cigarettes, uncomplicated; Z71.6 Tobacco abuse counseling; Z82.49 Family history of ischemic heart disease and other diseases of the circulatory system
CPT/HCPCS: 36415; 71045; 76937; 80048; 80053; 80061; 83036; 83690; 83735; 83880; 84484; 85025; 85027; 85610; 85730; 93005; 93306; 93458; 96374; 99291

== ENCOUNTER → 2023-12-30 | Outpatient (CLI) | payer OTHER ==
--- NOTE | 2024-01-20 09:01 | CT ---
Patient Nora Perez ID [id number] 1960 Age 63 years Gender F Order # EXAMINATION TYPE: CT chest w con DATE OF EXAM: 12/30/2023 COMPARISON: 07/30/2023 [facility] HISTORY: Abnormal findings CT DLP: 371 mGycm, Automated exposure control for dose reduction was used. CONTRAST: Performed injected with 100 mL of Isovue 300. TECHNIQUE: Axial images were obtained at 5 mm thick sections. Reconstructed images are reviewed on t he computer in the coronal plane. FINDINGS: Portion of the thyroid visualized is normal. There is a 1.9 cm nodule at the right mid lung periphery. Series 3 image 38. This appears stable from comparison. There is a 1.6 cm area of increased density along the inferior right lung base. Series 3 image 48. Th is was present previously and appears stable. Bilateral breast prostheses are present. There is a 1.1 cm lymph node in the pretracheal space with slightly lower density central portion. T his may have been present previously but slightly larger on the current exam. Metastasis is not exclu ded. The ascending aorta diameter at the level of the main pulmonary artery is 4.2 cm. The main pulmonary artery diameter at the bifurcation is 3.[address] sections are obtained through the upper abdomen. Fatty infiltration of liver is present. IMPRESSION: 1. Stable appearing right lower lung field nodular density. 2. Stable infiltrate or opacity right lung base. 3. There may be some enlargement of suspicious appearing 1.0 cm mediastinal lymph node. Recommend PET CT for additional evaluation 4. Fatty infiltration of the liver
== END | disposition home or self-care (01) ==
LOC: RADCTMAIN 10:05
PROVIDERS: ATTEND Internal Medicine
DX: K76.0 Fatty (change of) liver, not elsewhere classified (principal); J98.4 Other disorders of lung; R91.8 Other nonspecific abnormal finding of lung field
CPT/HCPCS: 71260; Q9967

== ENCOUNTER → 2024-06-01 | Outpatient (CLI) | payer OTHER ==
--- NOTE | 2024-06-01 14:04 | CT ---
EXAMINATION TYPE: CT chest w con CT DLP: 126.3 mGycm, Automated exposure control for dose reduction was used. DATE OF EXAM: 06/01/2024 1:47 PM COMPARISON: CT chest 01/18/2024, outside institution CTA chest 07/30/2023 CLINICAL INDICATION:Female, 63 years old with history of R91.1 LUNG NODULE; PHH, f/u nodules TECHNIQUE: Multiple axial images were obtained through the chest following the administration of 100 cc of Isovue 300. . Coronal and sagittal reformats reviewed. FINDINGS: LUNGS/ PLEURA: No pleural effusion or pneumothorax. Stable right middle lobe pulmonary nodule measuri ng up to 1.8 cm with coarse central calcification (series 4, image 39). Stable reticular opacity with in the right lower lobe which may represent scarring (series 4, image 50). New wedge-shaped consolida tive opacity within the periphery of the lateral left lower lobe adjacent to displaced rib fracture ( series 4, image 29). Stable right lower lobe calcified granuloma. AIRWAY: Patent and unremarkable.. HEART: Size within normal limits.No pericardial effusion. MEDIASTINUM: Stable mildly enlarged 1 cm short axis lymph node within the pretracheal space with slig htly lower density central portion (series 3, image 26). No new adenopathy. VASCULATURE: Conventional three-vessel aortic arch. Ascending thoracic aortic aneurysm measuring up to 4.3 cm. The aortic root measures up to 3.6 cm. The descending thoracic aorta measures up to 2.6 cm . 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 MUSCULOSKELETAL: Development of multiple moderately displaced left-sided rib fractures with callus fo rmation. Fracture lines are still present. These include the left lateral eighth and ninth ribs, post erior lateral ninth, 10th, 11th, and 12th ribs. There are segmental fractures of the ninth through 12 th ribs. Additional nondisplaced healing fractures of the left L1 and L2 transverse processes with ca llus formation. SOFT TISSUES/LYMPH NODES: Bilateral breast prosthesis. LOWER NECK: No significant findings. UPPER ABDOMEN: Stable focal region of low attenuation adjacent to the falciform ligament likely repre senting focal fatty infiltration. Stable right hepatic dome enhancing 5 mm focus likely representing a benign hemangioma or vascular shunt. IMPRESSION: 1. Development of multiple mildly displaced left-sided healing rib fractures including the eighth thr ough 12th ribs. There are segmental healing left ninth through 12th rib fractures. Callus formation i s identified with fracture lines still visible. Additional nondisplaced healing left L1 and L2 transv erse process fractures with callus formation. Correlate with history of trauma. 2. Development of a wedge-shaped left lateral lower lobe consolidation adjacent to the rib fracture l ikely related to injury. 3. Stable right middle lobe calcified 1.8 cm nodule. Morphology suggests a benign nodule. 4. Stable reticular probable scarring within the right lung base. 5. Stable nonspecific mildly enlarged pretracheal lymph node. No new adenopathy. [facility], , 06/01/2024 2:02 PM
== END | disposition home or self-care (01) ==
LOC: RADCTMAIN 13:13
PROVIDERS: ATTEND Internal Medicine
DX: S22.42XA Multiple fractures of ribs, left side, initial encounter for closed fracture (principal); R91.1 Solitary pulmonary nodule; R60.0 Localized edema
CPT/HCPCS: 71260; Q9967